=== PATIENT | female | born 1995 | race Hispanic/Latino ===

== ENCOUNTER 2018-04-20 19:43 | Emergency (ER) | payer MEDICAID ==
[2018-04-20 20:42] VITALS: BMI 20.6
[2018-04-20 20:44] VITALS: BP 121/76; PULSE 83; RESP 16; TEMP 98.4; O2SAT 100
--- NOTE | 2018-04-20 20:55 | ED PDOC ---
HPI: CCC, URI, Sore Throat Time Seen by Provider: 04/20/18 20:45 Chief Complaint (Nursing): ENT Problem Chief Complaint (Provider): ENT Problem History Per: Patient History/Exam Limitations: no limitations Onset/Duration Of Symptoms: Days (x2) Current Symptoms Are (Timing): Still Present Additional Complaint(s): 22 y/o female with no significant pmhx, who presents to the ED for evaluation of right sided throat redness and pain x2 days. Patient denies fever or chills. PMD: Alejandra Thakur Past Medical History Reviewed: Historical Data, Nursing Documentation, Vital Signs Vital Signs: Last Vital Signs Temp 98.4 F 04/20/18 20:42 Pulse 83 04/20/18 20:42 Resp 16 04/20/18 20:42 BP 121/76 04/20/18 20:42 Pulse Ox 100 04/20/18 20:55 - Medical History PMH: Asthma (exercise induced) - Surgical History Surgical History: No Surg Hx - Family History Family History: States: Unknown Family Hx - Home Medications Home Medications: Ambulatory Orders Medication Instructions Recorded Sucralfate [Carafate Oral Susp] 1 gm PO DAILY PRN 5 Days udc 07/31/14 Amoxicillin 875 mg PO BID #20 tablet 04/08/16 - Allergies Allergies/Adverse Reactions: Allergies Allergy/AdvReac Type Severity Reaction Status Date / Time No Known Allergies Allergy Verified 04/20/18 20:42 Review of Systems ROS Statement: Except As Marked, All Systems Reviewed And Found Negative Constitutional: Negative for: Fever, Chills ENT: Positive for: Throat Pain (and redness) Physical Exam - Reviewed Nursing Documentation Reviewed: Yes Vital Signs Reviewed: Yes - Physical Exam Appears: Positive for: Non-toxic, No Acute Distress Head Exam: Positive for: ATRAUMATIC Skin: Positive for: Normal Color, Warm Eye Exam: Positive for: Normal appearance ENT: Positive for: Pharyngeal Erythema (right sided) Neck: Positive for: Normal, Painless ROM Cardiovascular/Chest: Positive for: Regular Rate, Rhythm. Negative for: Murmur Respiratory: Positive for: Normal Breath Sounds. Negative for: Respiratory Distress Neurologic/Psych: Positive for: Alert - ECG O2 Sat by Pulse Oximetry: 100 (RA) Pulse Ox Interpretation: Normal Medical Decision Making Medical Decision Makin:50 Plan: --Urine --Prednisone 60mg PO --Rapid strep Strep (-) Scribe Attestation: Documented by Veto Varela, acting as a scribe for Angie Berrios PA-C. Provider Scribe Attestation: All medical record entries made by the scribe were at my direction and personally dictated by me. I have reviewed the chart and agree that the record accurately reflects my personal performance of the history, physical exam, medical decision making, and the department course for this patient. I have also personally directed, reviewed, and agree with the discharge instructions and disposition. Disposition - Clinical Impression Clinical Impression: Sore throat (viral) - Patient ED Disposition Is Patient to be Admitted: No Counseled Patient/Family Regarding: Diagnosis, Need For Followup - Disposition Disposition: Routine/Home Disposition Time: 21:32 Condition: STABLE Instructions: Sore Throat in Adults Forms: [employer] (Algerian)
== END 2018-04-20 21:34 | disposition home or self-care (01) ==
LOC: H.ER 19:43
DX: J02.9 Acute pharyngitis, unspecified (principal)

== ENCOUNTER 2018-07-18 20:52 | Emergency (ER) | payer MEDICAID ==
[2018-07-18 20:52] VITALS: BMI 20.6
[2018-07-18 21:24] VITALS: BP 126/82; PULSE 108; RESP 18; TEMP 98.8; O2SAT 99
--- NOTE | 2018-07-18 22:20 | ED PDOC ---
HPI: Skin/Bite Injury Time Seen by Provider: 07/18/18 21:53 Chief Complaint (Nursing): Abnormal Skin Integrity Chief Complaint (Provider): Redness, pain - Right lateral hip History Per: Patient History/Exam Limitations: no limitations Onset/Duration Of Symptoms: Days Current Symptoms Are (Timing): Still Present Quality Of Symptoms: Painful Additional Complaint(s): 22 yo female with no medical problems presents for evaluation of boil in the right lateral thigh. No fever/chills. Pt states she has been doing warm compresses. Pt reports drainage. Past Medical History Reviewed: Historical Data, Nursing Documentation, Vital Signs Vital Signs: Last Vital Signs Temp 98.8 F 07/18/18 21:20 Pulse 108 H 07/18/18 21:20 Resp 18 07/18/18 21:20 BP 126/82 07/18/18 21:20 Pulse Ox 99 07/18/18 21:20 - Medical History PMH: Asthma (exercise induced) - Surgical History Surgical History: No Surg Hx - Family History Family History: States: Unknown Family Hx - Home Medications Home Medications: Ambulatory Orders Medication Instructions Recorded Sucralfate [Carafate Oral Susp] 1 gm PO DAILY PRN 5 Days udc 07/31/14 Amoxicillin 875 mg PO BID #20 tablet 04/08/16 Clindamycin [Cleocin] 300 mg PO QID #40 cap 07/18/18 - Allergies Allergies/Adverse Reactions: Allergies Allergy/AdvReac Type Severity Reaction Status Date / Time No Known Allergies Allergy Verified 04/20/18 20:42 Review of Systems ROS Statement: Except As Marked, All Systems Reviewed And Found Negative Constitutional: Negative for: Fever, Chills Gastrointestinal: Negative for: Nausea, Vomiting Skin: Positive for: Other Physical Exam - Reviewed Nursing Documentation Reviewed: Yes Vital Signs Reviewed: Yes - Physical Exam Appears: Positive for: Well, Non-toxic, No Acute Distress Head Exam: Positive for: ATRAUMATIC, NORMAL INSPECTION, NORMOCEPHALIC Skin: Positive for: Warm. Negative for: Normal Color ((+) indurated abscess right lateral thigh, (+) drainage, purulant withou surroudning erythema ) Eye Exam: Positive for: Normal appearance ENT: Positive for: Normal ENT Inspection Neck: Positive for: Normal Respiratory: Negative for: Accessory Muscle Use, Respiratory Distress Back: Positive for: Normal Inspection Extremity: Positive for: Normal ROM Neurologic/Psych: Positive for: Alert, Oriented, Gait. Negative for: Aphasia - ECG O2 Sat by Pulse Oximetry: 99 Medical Decision Making Medical Decision Making: Motrin PO in ER Disposition - Clinical Impression Clinical Impression: Cellulitis and abscess of leg - Patient ED Disposition Is Patient to be Admitted: No Counseled Patient/Family Regarding: Diagnosis, Need For Followup, Rx Given - Disposition Referrals: [facility] [employer] [facility] [Outside] Disposition: Routine/Home Disposition Time: 22:34 Condition: STABLE Prescriptions: Clindamycin [Cleocin] 300 mg PO QID #40 cap Instructions: Cellulitis and Erysipelas (Skin Infections), Boil
== END 2018-07-18 23:02 | disposition home or self-care (01) ==
LOC: H.ER 20:52
DX: L02.415 Cutaneous abscess of right lower limb (principal); L03.115 Cellulitis of right lower limb

== ENCOUNTER 2019-02-28 22:40 | Emergency (ER) | payer MEDICAID ==
[2019-02-28 22:41] VITALS: BMI 20.6
[2019-02-28 23:08] VITALS: BP 122/81; PULSE 85; RESP 17; TEMP 98.3; O2SAT 100
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
== END 2019-03-01 00:10 | disposition home or self-care (01) ==
LOC: H.ER 22:40
DX: S09.90XA Unspecified injury of head, initial encounter (principal); W19.XXXA Unspecified fall, initial encounter; Y92.89 Other specified places as the place of occurrence of the external cause; F07.81 Postconcussional syndrome